=== PATIENT | male | born 1960 | race African-American/Black ===

== ENCOUNTER 2016-06-25 08:16 | Emergency (ER) | payer OTHER ==
[2016-06-25 08:22] VITALS: BP 110/79; PULSE 79; TEMP 98.1; BMI 36.2
--- NOTE | 2016-06-25 09:00 | PDOC ---
History of Present Illness - General Chief Complaint: Cold Symptoms Stated Complaint: COLD SYMPTOMS Time Seen by Provider: 06/25/16 08:39 History Source: Patient Exam Limitations: No Limitations - History of Present Illness Initial Comments: 06/25/16 08:57 Patient here with partner with complaints of runny nose, moist cough, and congestion times one week. Denies fevers, denies purulent drainage from nose, has no phlegm production. Has used [id number] medication with minimal resolved. Had a late-night Wednesday with heavy smoking and states symptoms worsened after that Timing/Duration: reports: intermittent Severity: reports: mild Associated Symptoms: reports: cough, nasal congestion. denies: chest pain/ soreness, fever/chills Past History - Travel Traveled outside of the country in the last 30 days: No Close contact w/someone who was outside of country & ill: No - Past Medical History Allergies/Adverse Reactions: Allergies Allergy/AdvReac Type Severity Reaction Status Date / Time No Known Allergies Allergy Verified 06/25/16 08:22 Home Medications: Ambulatory Orders NK [No Known Home Medication] 06/25/16 Diabetes: Yes - Psycho/Social/Smoking Cessation Hx Suicidal Ideation: No Smoking History: Never smoked Information on smoking cessation initiated: No Hx Alcohol Use: No Drug/Substance Use Hx: No Substance Use Type: None Review of Systems - Review of Systems Able to Perform ROS?: Yes Is the patient limited [place] proficient: Yes Constitutional: Yes: Symptoms Reported, See HPI, Malaise. No: Fever HEENTM: Yes: Symptoms Reported, See HPI, Nose Congestion. No: Throat Pain Respiratory: Yes: See HPI, Cough. No: Shortness of Breath, Wheezing Musculoskeletal: No: Symptoms Reported Integumentary: No: Symptoms Reported All Other Systems: Reviewed and Negative *Physical Exam - Vital Signs Last Vital Signs Temp Pulse Resp BP Pulse Ox 98.1 F 79 18 110/79 97 06/25/16 08:20 06/25/16 08:20 06/25/16 08:20 06/25/16 08:20 06/25/16 08:20 - Physical Exam General Appearance: Yes: Nourished, Appropriately Dressed. No: Apparent Distress HEENT: positive: [place], TMs Normal, Pharynx Normal (no redness, swelling or exudate), Rhinorrhea (clear drainage). negative: Sinus Tenderness Neck: positive: Supple Respiratory/Chest: positive: Lungs Clear, Normal Breath Sounds. negative: Crackles, Rales, Wheezing Cardiovascular: positive: Regular Rhythm Gastrointestinal/Abdominal: positive: Soft. negative: Tender Extremity: positive: Normal Capillary Refill, Normal Inspection Integumentary: positive: Normal Color, Dry, Warm Neurologic: positive: concrete pointer II-XII NML intact, Fully Oriented, Alert, Normal Mood/ Affect, Normal Response, Motor Strength 5/5 Progress Note - Progress Note Progress Note: Upper respiratory infection, probable viral and mild no medications necessary as there is no dictation of bacterial infection *DC/Admit/Observation/Transfer Diagnosis at time of Disposition: Common cold virus - Discharge Dispostion Disposition: HOME Condition at time of disposition: Stable Admit: No - Patient Instructions Printed Discharge Instructions: DI for Common Cold Additional Instructions: Rest, drink lots of fluids: Teas, water, soups, Pedialyte Saltwater gargles Steamy showers/seem to face break up mucus Avoid contact with others until fevers and cough resolved Lots of handwashing and good hygiene Continue [id number] medications for symptomatic relief Tylenol or Motrin for fever and pain Followup with private physician in one to 2 days as needed Return to emergency department for worsened symptoms, fevers, dehydration
== END 2016-06-25 09:32 | disposition home or self-care (01) ==
LOC: JERFT 08:16
DX: J06.9 Acute upper respiratory infection, unspecified (principal); E11.9 Type 2 diabetes mellitus without complications
CPT/HCPCS: 99281-25